=== PATIENT | female | born 1945 | race Asian ===

== ENCOUNTER 2020-07-03 18:00 | Emergency (ER) | payer OTHER ==
[~2020-07-03] VITALS: Ht 167.6 cm; Wt 63.5 kg
[2020-07-03 18:17] LABS: PLATELET COUNT 254 K/uL (152-353)
[2020-07-03 18:39] LABS: POTASSIUM 4.6 mmol/L (3.6-5.2)
[2020-07-03 19:45] VITALS: BP 95/56; TEMP 98.6
[2020-07-10] MEDS ORDERED: MAGNSUS68 PO (10:50)
[2020-07-10] MEDS ORDERED: RISP0.25 PO (10:50)
[2020-07-10] MEDS ORDERED: ACET-206 PO (10:50)
[2020-07-10] MEDS ORDERED: ESCI10TA PO (10:50)
[2020-07-10] MEDS ORDERED: VITAMIN D50000 UNIT PO (10:50)
[2020-08-15] MEDS ORDERED: MACROBID100 MG PO (18:19)
[2020-08-22] MEDS ORDERED: BUSP5TAB2 PO (09:46)
[2020-08-22] MEDS ORDERED: MELATONIN MAXIMU5 MG PO (09:46)
[2020-08-22] MEDS ORDERED: ESCI10TA PO (09:46)
[2020-08-22] MEDS ORDERED: RISP0.25 PO (09:50)
== END 2020-07-03 19:45 | disposition other institution (70) ==
LOC: ED 18:00
PROVIDERS: Family Medicine
DX: F22 Delusional disorders (principal); F25.8 Other schizoaffective disorders; Z11.59 Encounter for screening for other viral diseases; Z04.6 Encounter for general psychiatric examination, requested by authority
CPT/HCPCS: 36415; 80053; 81000; 85027; 87635; 93005; 99283; U0003